=== PATIENT | male | born 1960 | race Caucasian/White ===

== ENCOUNTER 2017-08-04 09:15 | Inpatient (IN) | payer OTHER ==
[~2017-08-04] VITALS: Ht 170.2 cm; Wt 81.6 kg
[2017-08-04] MEDS ORDERED: ZOCOR20 MG PO (10:02)
[2017-08-04] MEDS ORDERED: COZAAR100 MG PO (10:02)
== END 2017-08-14 16:31 | disposition home or self-care (01) | DRG 331 ==
LOC: SURG 08-11 06:08 → O/R 08-11 06:08 → SURH 08-11 09:15 → SURG 08-11 13:09 → SURH 08-11 21:30 → SURG 08-14 16:31
PROVIDERS: Colon & Rectal Surgery
PROC: 0DTN4ZZ Resection of Sigmoid Colon, Percutaneous Endoscopic Approach (ICD-10-PCS; principal; 2017-08-11 21:30)
DX: K57.32 Diverticulitis of large intestine without perforation or abscess without bleeding (principal); I11.9 Hypertensive heart disease without heart failure; E78.00 Pure hypercholesterolemia, unspecified; R80.8 Other proteinuria

== ENCOUNTER 2018-08-13 06:39 | Day surgery (SDC) | payer OTHER ==
[~2018-08-13 06:39] MED LIST: COZAAR100 MG PO; ZOCOR20 MG PO
== END 2018-08-13 10:55 | disposition home or self-care (01) ==
LOC: AMB-ENDOS 06:39
DX: K57.32 Diverticulitis of large intestine without perforation or abscess without bleeding (principal); K64.1 Second degree hemorrhoids

== ENCOUNTER 2024-05-11 07:14 | Outpatient (CLI) | payer OTHER | END 2024-05-11 07:25 | disposition home or self-care (01) | LOC: MRI 07:14 | PROVIDERS: ATTEND General Practice | DX: M06.4 Inflammatory polyarthropathy (principal); M54.2 Cervicalgia | CPT/HCPCS: 72141 ==